=== PATIENT | male | born 1990 | race Caucasian/White ===

== ENCOUNTER 2022-07-21 12:58 | Emergency (ER) | payer OTHER ==
[2022-07-21] MEDS ORDERED: HYDROcodone/Acetaminophen 7.5/325 mg Tablet ONE (14:10)
[2022-07-21] MEDS ORDERED: Ketorolac Tromethamine 30 MG/ML VIAL ONE (14:10)
[2022-07-21] MEDS ORDERED: Iopamidol-370 76% 500 ML 1 ML ONE (14:36)
== END 2022-07-21 15:46 | disposition home or self-care (01) ==
LOC: ERS 12:58
DX: S20.212A Contusion of left front wall of thorax, initial encounter (principal); V23.49XA Other motorcycle driver injured in collision with car, pick-up truck or van in traffic accident, initial encounter
CPT/HCPCS: 71045; 71260; 72125; 96372; J1885; Q9967